=== PATIENT | female | born 1985 | race Hispanic/Latino ===

== ENCOUNTER 2017-06-20 15:14 | Emergency (ER) | payer OTHER ==
[2017-06-20] MEDS ORDERED: ONDANSETRON ODT 4 MG TAB ONE (15:54)
[2017-06-20] MEDS ORDERED: FAMOTIDINE 20MG TAB 20 MG TAB ONE (15:54)
== END 2017-06-20 16:54 | disposition home or self-care (01) ==
LOC: EDH 15:14
DX: K21.9 Gastro-esophageal reflux disease without esophagitis (principal); R11.2 Nausea with vomiting, unspecified

== ENCOUNTER → 2017-09-07 | Outpatient (CLI) | payer OTHER | END | disposition home or self-care (01) | LOC: RAH 14:32 | PROVIDERS: ATTEND Obstetrics & Gynecology | DX: N63.20 Unspecified lump in the left breast, unspecified quadrant (principal); R92.2 Inconclusive mammogram | CPT/HCPCS: 76641 ==

== ENCOUNTER 2018-02-02 05:40 | Observation (INO) | payer OTHER ==
[2018-02-01 13:10] VITALS: BP 96/68
[2018-02-01 13:32] LABS: BASOPHILS % (AUTO) 0.4 % (0.0-5.0); EOSINOPHILS % (AUTO) 1.7 % (0.0-8.0); HEMATOCRIT 40.9 % (36-48); LYMPHOCYTES % (AUTO) 20.2 % (21.0-51.0); MEAN CORPUSCULAR HGB CONC 32.2 g/dL (32.0-36.0); MEAN CORPUSCULAR VOLUME 83.8 fL (79-99); MONOCYTES % (AUTO) 6.4 % (3.0-13.0); NEUTROPHILS % (AUTO) 71.3 % (40.0-77.0); PLATELET COUNT (AUTO) 272 K/uL (130-400); RED BLOOD CELL COUNT(AUTO) 4.88 MIL/uL (4.00-5.50); RED CELL DISTRIBUTION WIDTH 13.8 % (11.0-15.5); WHITE BLOOD COUNT (AUTO) 9.9 K/uL (4.8-10.8)
[~2018-02-02] VITALS: Ht 156.2 cm; Wt 70.8 kg
[2018-02-02] VITALS (22 sets, daily range): BP systolic 114–153; BP diastolic 55–91
[~2018-02-02 05:40] MED LIST: BUSP10TA3 PO; CEFAZOLIN SODIUM 1 GM VIAL IVP SCH
[2018-02-02] MEDS ORDERED: LACTATED RINGERS 1000ML 1,000 ML IV ONE (06:05)
[2018-02-02] MEDS ORDERED: DEXAMETHASONE SOD PHOSPHATE 10MG/ML 1ML VIAL ONE (06:54)
[2018-02-02] MEDS ORDERED: MIDAZOLAM HCL 1 MG/ML 2ML VIAL ONE (06:55)
[2018-02-02] MEDS ORDERED: LIDOCAINE PF 2% 5ML ABBOJECT ONE (06:55)
[2018-02-02] MEDS ORDERED: SUCCINYLCHOLINE 200MG/10ML SYR ONE (06:55)
[2018-02-02] MEDS ORDERED: ONDANSETRON HCL 4 MG/2 ML VIAL ONE ×2 (06:55→09:15)
[2018-02-02] MEDS ORDERED: NEOSTIGMINE 5MG/5ML SYR IV ONE (06:56)
[2018-02-02] MEDS ORDERED: PROPOFOL 10 MG/ML 20ML VIAL IV ONE (06:56)
[2018-02-02] MEDS ORDERED: ROCURONIUM 10MG/1ML SYR 10 MG/ML ML ONE (06:56)
[2018-02-02] MEDS ORDERED: FENTANYL CITRATE PF 50 MCG/1 ML 2ML VIAL ONE (06:58)
[2018-02-02] MEDS ORDERED: MEPERIDINE-PF 50 MG/ML SYG ONE (08:41)
[2018-02-02] MEDS ORDERED: GLYCOPYRROLATE 1 MG/5 ML SYRINGE ONE (08:48)
[2018-02-02] MEDS ORDERED: MEPERIDINE-PF 25 MG/ML SYG ONE ×2 (09:25→09:51)
[2018-02-02] MEDS ORDERED: DOCUSATE SODIUM 100 MG CAP PO PRN (10:15)
[2018-02-02] MEDS ORDERED: IBUPROFEN 600 MG TABLET PO PRN (10:15)
[2018-02-02] MEDS ORDERED: PROMETHAZINE HCL 25 MG/ML 1ML AMPULE IM PRN (10:15)
[2018-02-02] MEDS ORDERED: BISACODYL 10 MG SUPP.RECT RC PRN (10:15)
[2018-02-02] MEDS: PROMETHAZINE HCL 25 MG/ML 1ML AMPULE IM PRN ×3 (10:43→19:58)
[2018-02-02] MEDS: MEPERIDINE-PF 75 MG/ML SYG IM PRN ×3 (10:44→19:59)
[2018-02-02] MEDS: DEXTROSE 5 %-0.45 % NACL 1,000 ML IV PRN (18:10)
[2018-02-02] MEDS: ACETAMINOPHEN-CODEINE 300/30MG TAB PO PRN ×2 (18:10→23:31)
[2018-02-03] MEDS: DEXTROSE 5 %-0.45 % NACL 1,000 ML IV PRN (03:34)
[2018-02-03 03:48] VITALS: BP 114/61
[2018-02-03] MEDS: MEPERIDINE-PF 75 MG/ML SYG IM PRN (04:00)
[2018-02-03] MEDS ORDERED: HYDROCODONE/ACETAMINOPHEN 5/325 MG TAB PO PRN (04:45)
[2018-02-03 05:13] LABS: HEMATOCRIT 36.3 % (36-48); MEAN CORPUSCULAR HEMOGLOBIN 26.8 pg (27.0-33.0); MEAN CORPUSCULAR HGB CONC 32.4 g/dL (32.0-36.0); MEAN CORPUSCULAR VOLUME 82.7 fL (79-99); PLATELET COUNT (AUTO) 265 K/uL (130-400); RED BLOOD CELL COUNT(AUTO) 4.39 MIL/uL (4.00-5.50); RED CELL DISTRIBUTION WIDTH 13.7 % (11.0-15.5); WHITE BLOOD COUNT (AUTO) 21.2 K/uL (4.8-10.8)
[2018-02-03 07:43] VITALS: BP 128/63
[2018-02-03] MEDS: ACETAMINOPHEN-CODEINE 300/30MG TAB PO PRN (08:58)
[2018-02-03] MEDS: SIMETHICONE 80 MG TAB.CHEW PO PRN ×2 (08:58→15:12)
[2018-02-03] MEDS ORDERED: IBUPROFEN 600 MG TABLET PO PRN (10:15)
[2018-02-03 12:01] VITALS: BP 119/63
[2018-02-03] MEDS ORDERED: IBUPROFEN 800 MG TAB PO PRN (15:00)
[2018-02-03] MEDS ORDERED: IBUPROFEN 800 MG TAB ONE (15:10)
== END 2018-02-03 18:00 | disposition home or self-care (01) ==
LOC: DAH 05:40 → SUH 05:40 → WSH 05:41 → SUH 23:57
PROVIDERS: ADMIT Obstetrics & Gynecology; ATTEND Obstetrics & Gynecology
DX: N92.1 Excessive and frequent menstruation with irregular cycle (principal); D25.9 Leiomyoma of uterus, unspecified; N81.6 Rectocele; N81.2 Incomplete uterovaginal prolapse; Z96.632 Presence of left artificial wrist joint; Z80.3 Family history of malignant neoplasm of breast
CPT/HCPCS: 36415 ×2; 58263; 84702; 85025; 85027; 86850; 86900; 86901; 88305; 88307; 96372 ×2; A4311; A4351; A4510; A4600; A4606; A4930; G0378 ×36; J0330; J0690; J1100; J2001; J2175 ×7; J2250; J2405 ×2; J2550 ×4; J2704; J2710; J3010; J3490; J7120 ×2

== ENCOUNTER → 2019-01-27 | Outpatient (CLI) | payer OTHER ==
[~2019-01-27] MED LIST changes: -CEFAZOLIN SODIUM 1 GM VIAL IVP SCH
== END | disposition home or self-care (01) ==
LOC: RAH 10:55
PROVIDERS: ATTEND Obstetrics & Gynecology
DX: N63.10 Unspecified lump in the right breast, unspecified quadrant (principal)
CPT/HCPCS: 76641

== ENCOUNTER → 2019-02-16 | Outpatient (CLI) | payer OTHER ==
[2019-02-16 10:50] LABS: INR 0.99 (0.85-1.15); PROTHROMBIN TIME 10.4 SEC (9.6-11.6)
--- NOTE | 2019-02-16 11:15 | NUR ---
U/S GUIDED BIOPSY RIGHT BREAST PROCEDURE PERFORMED BY DR. RODRIGUEZ. PUNCTURE SITE RIGHT MEDIAL BREAST. PATIENT TOLERATED PROCEDURE WELL. SPECIMEN X 3 COLLECTED. END OF PROCEDURE AT 1135. BIOPSY NEEDLE REMOVED AND DRESSING APPLIED. NO BLEEDING NOTED. DISCHARGE INSTRUCTIONS GIVEN TO PATIENT AND VERBALIZED UNDERSTANDING. DISCHARGED AT 1210 AMBULATORY. PT STABLE, AAO X 3, WITH NO C/O PAIN. SPECIMEN SENT TO LAB
== END ==
LOC: RAH 09:34
PROVIDERS: ATTEND Obstetrics & Gynecology
DX: C50.911 Malignant neoplasm of unspecified site of right female breast (principal); Z79.899 Other long term (current) drug therapy
CPT/HCPCS: 19083; 36415; 77065; 85610; 85730; 88305; A4215

== ENCOUNTER 2023-08-11 08:07 | Day surgery (SDC) | payer OTHER ==
[2023-08-06 15:43] LABS: BASOPHILS # (AUTO) 0.03 K/uL (0.00-0.20); BASOPHILS % (AUTO) 0.3 % (0.0-5.0); EOSINOPHILS # (AUTO) 0.24 K/uL (0.00-0.70); EOSINOPHILS % (AUTO) 2.3 % (0.0-8.0); HEMATOCRIT 41.9 % (36-48); IMMATURE GRANULOCYTE ABSOLUTE 0.06 K/uL (0-1); LYMPHOCYTES # (AUTO) 2.3 K/uL (1.0-4.8); LYMPHOCYTES % (AUTO) 21.4 % (21.0-51.0); MEAN CORPUSCULAR HEMOGLOBIN 28.7 pg (27.0-33.0); MEAN CORPUSCULAR HGB CONC 33.2 g/dL (32.0-36.0); MEAN CORPUSCULAR VOLUME 86.4 fL (79-99); MONOCYTES # (AUTO) 0.7 K/uL (0.1-1.0); MONOCYTES % (AUTO) 6.8 % (3.0-13.0); NEUTROPHILS # (AUTO) 7.2 K/uL (1.8-7.7); NEUTROPHILS % (AUTO) 68.6 % (40.0-77.0); PLATELET COUNT (AUTO) 313 K/uL (130-400); RED BLOOD CELL COUNT(AUTO) 4.85 MIL/uL (4.00-5.50); RED CELL DISTRIBUTION WIDTH 12.7 % (11.0-15.5); WHITE BLOOD COUNT (AUTO) 10.5 K/uL (4.8-10.8)
[2023-08-06 15:53] LABS: INR <= 0.93 (0.85-1.15); PROTHROMBIN TIME 10.6 SEC (9.6-11.6)
[2023-08-06 15:54] LABS: PARTIAL THROMBOPLASTIN TIME 29.9 SEC (26.3-35.5)
[2023-08-06 15:56] VITALS: BP 119/66; PULSE 90; RESP 19
[2023-08-06 16:00] LABS: CREATININE 0.7 mg/dL (0.5-1.0); POTASSIUM 3.7 mmol/L (3.5-5.1)
[2023-08-11] VITALS (16 sets, daily range): BP systolic 100–135; BP diastolic 49–78; PULSE 65–85; RESP 12–20
[~2023-08-11] VITALS: Ht 160 cm; Wt 74.8 kg
[~2023-08-11 08:07] MED LIST changes: -BUSP10TA3 PO; +DIPH-1242 PO
[2023-08-11] MEDS ORDERED: BUPIVACAINE/PF 0.5% 30ML VIAL ONE (08:42)
[2023-08-11] MEDS: LACTATED RINGERS 1000ML 1,000 ML IV ONE (08:52)
[2023-08-11] MEDS ORDERED: LIDOCAINE PF 100MG/5ML (2%) SYRINGE 5ML ONE (08:52)
[2023-08-11] MEDS ORDERED: FENTANYL CITRATE PF 50 MCG/1 ML 2ML VIAL ONE ×2 (08:53→10:01)
[2023-08-11] MEDS ORDERED: MIDAZOLAM HCL 1 MG/ML 2ML VIAL ONE (08:53)
[2023-08-11] MEDS ORDERED: DEXAMETHASONE SOD PHOSPHATE 10MG/ML 1ML VIAL ONE (08:53)
[2023-08-11] MEDS ORDERED: PROPOFOL 10 MG/ML 20ML VIAL IV ONE (08:53)
[2023-08-11] MEDS: CEFAZOLIN SODIUM 2 GM VIAL ONE (08:53)
[2023-08-11] MEDS ORDERED: ONDANSETRON 4MG INJ ONE (08:53)
[2023-08-11] MEDS: BUPIVACAINE/PF 0.5% 30ML VIAL INJ ONE (09:37)
[2023-08-11] MEDS ORDERED: KETOROLAC 30MG VIAL (30MG/ML) ONE (10:01)
[2023-08-11] MEDS ORDERED: GABA-529 PO (10:06)
[2023-08-11] MEDS ORDERED: TRAM50TA4 PO (10:06)
[2023-08-11] MEDS ORDERED: DOCU-116 PO (10:06)
== END 2023-08-11 12:00 | disposition home or self-care (01) ==
LOC: DAH 08:07
PROVIDERS: ATTEND Surgery
DX: C50.511 Malignant neoplasm of lower-outer quadrant of right female breast (principal); F41.9 Anxiety disorder, unspecified; M19.90 Unspecified osteoarthritis, unspecified site; F17.200 Nicotine dependence, unspecified, uncomplicated; F51.01 Primary insomnia; Z79.01 Long term (current) use of anticoagulants; Z79.899 Other long term (current) drug therapy; Z85.3 Personal history of malignant neoplasm of breast; Z90.710 Acquired absence of both cervix and uterus; Z98.890 Other specified postprocedural states; Z90.13 Acquired absence of bilateral breasts and nipples; Z80.3 Family history of malignant neoplasm of breast
CPT/HCPCS: 80048; 85025; 85610; 85730; 36415; 19301; 88305; 88307; A6260; A4663; J7120; J3010 ×2; J1100; J2001; J2250; J2704; J2405; J1885; J0665 ×2; J0690 ×2; A4930; A4215; A4223; A4222; A4221; A4600; J3490

== ENCOUNTER 2024-04-04 20:20 | Emergency (ER) | payer OTHER ==
[~2024-04-04] VITALS: Ht 157.5 cm; Wt 73.0 kg
[~2024-04-04 20:20] MED LIST changes: +DOCU-116 PO; +GABA-529 PO; +TRAM50TA4 PO
[2024-04-04] MEDS: ondanSETRON 4MG INJ IVP STA (20:27)
[2024-04-04] MEDS: 0.9%NACL 1000ML 1,000 ML IV STA (20:27)
[2024-04-04] MEDS: ketOROlac 15MG/ML VIAL (15MG/ML) IV STA (20:27)
[2024-04-04 20:39] LABS: APPEARANCE,URINE CLEAR (CLEAR); BILIRUBIN,URINE NEGATIVE (NEGATIVE); COLOR,URINE LIGHT-YELLOW (YELLOW); GLUCOSE, URINE (UA) NEGATIVE (NEGATIVE); KETONES,URINE NEGATIVE (NEGATIVE); LEUKOCYTE ESTERASE ,URINE NEGATIVE Leu/uL (NEGATIVE); NITRATE,URINE NEGATIVE (NEGATIVE); OCCULT BLOOD,URINE SMALL (NEGATIVE); PROTEIN,URINE NEGATIVE (NEGATIVE); UROBILINOGEN,URINE 0.2 mg/dL (0.2-1.0)
[2024-04-04 20:40] LABS: ADD UA MICROSCOPIC YES
[2024-04-04 20:42] LABS: BACTERIA,URINE RARE /HPF (None Seen); MUCUS,URINE RARE LPF (None Seen); SQUAMOUS EPITHELIAL CELL,UR FEW /HPF (0-2)
[2024-04-04 21:06] LABS: BASOPHILS # (AUTO) 0.03 K/uL (0.00-0.20); BASOPHILS % (AUTO) 0.3 % (0.0-5.0); EOSINOPHILS % (AUTO) 1.9 % (0.0-8.0); IMMATURE GRANULOCYTE ABSOLUTE 0.04 K/uL (0-1); LYMPHOCYTES # (AUTO) 2.6 K/uL (1.0-4.8); LYMPHOCYTES % (AUTO) 25.2 % (21.0-51.0); MEAN CORPUSCULAR HEMOGLOBIN 29.5 pg (27.0-33.0); MEAN CORPUSCULAR HGB CONC 32.6 g/dL (32.0-36.0); MEAN CORPUSCULAR VOLUME 90.5 fL (79-99); MONOCYTES # (AUTO) 0.9 K/uL (0.1-1.0); MONOCYTES % (AUTO) 8.6 % (3.0-13.0); NEUTROPHILS # (AUTO) 6.6 K/uL (1.8-7.7); NEUTROPHILS % (AUTO) 63.6 % (40.0-77.0); PLATELET COUNT (AUTO) 268 K/uL (130-400); RED BLOOD CELL COUNT(AUTO) 4.64 MIL/uL (4.00-5.50); RED CELL DISTRIBUTION WIDTH 12.4 % (11.0-15.5); WHITE BLOOD COUNT (AUTO) 10.3 K/uL (4.8-10.8)
[2024-04-04 21:15] LABS: CREATININE 0.7 mg/dL (0.5-1.0); POTASSIUM 3.8 mmol/L (3.5-5.1)
--- NOTE | 2024-04-04 21:30 | HMCIMG ---
CT ABDOMEN/PELVIS W/O CONTRAST HISTORY: Right flank pain COMPARISON: 08/29/2016 TECHNIQUE: Multiple sequential axial images of the abdomen and pelvis were obtained from the dome of the diaphragm through symphysis pubis. Patient was not given contrast through intravenous route. Oral contrast was not given. FINDINGS: No pleural effusion is seen bilaterally. There are bilateral breast implants. There is no evidence of parenchymal disease or pulmonary nodule of the visualized lower lungs. Degenerative changes of the thoracolumbar spine are present. The heart is not enlarged. Liver measures 17 cm. Gallbladder is contracted. The liver, spleen, adrenal glands and pancreas are unremarkable. There is no evidence of hydronephrosis bilaterally. No evidence of renal stone is seen. Fecal material is seen in the colon. There are normal size retroperitoneal and mesenteric lymph nodes. No ascites is seen. No CT evidence of acute appendicitis is seen. Uterus has been removed. Pelvic sidewalls are symmetric bilaterally. Bladder is poorly distended. There is right ovarian cystic structure measuring 2.8 cm may be related to ovarian cyst. IMPRESSION: 1. Right ovarian cystic structure measuring 2.8 cm. No hydronephrosis is seen. CT was performed with one or more following dose reduction techniques: automated exposure control, adjustment of the mA and kv according to patient's size, or use of a iterative reconstruction technique.
[2024-04-04] MEDS: acetaMINOPHEN 325 MG TAB PO ONE (23:15)
--- NOTE | 2024-04-04 23:18 | ERN ---
ED Note History of Present Illness Stated Complaint: ABDOMINAL PAIN Chief Complaint: Abdominal Pain Time Seen by MD: 20:23 Time Seen by Midlevel: 20:26 Dictation: 38-year-old female complaining of right lower quadrant pain that radiates to the right flank area. Patient states the pain started 30 minutes ago and states she has some dysuria but no hematuria. Previous history breast cancer, now taking tamoxifen prophylactically. Surgical history hysterectomy and double mastectomy. Denies any fever, nausea, vomiting or diarrhea. Allergies: Coded Allergies: No Known Drug Allergies (Unverified Allergy, Unknown, 02/01/18) Home Meds Active Scripts Gabapentin (Gabapentin) 100 Mg Capsule, 100 MG PO TID, #15 CAP 0 Refills Prov:ALESSANDRO HERRON MD 08/11/23 Docusate Sodium (Colace) 100 Mg Capsule, 100 MG PO BID, #30 CAP 0 Refills Prov:ALESSANDRO HERRON MD 08/11/23 Tramadol Hcl (Tramadol HCl) 50 Mg Tablet, 50 MG PO Q6HPRN PRN for PAIN, #28 TAB 0 Refills Prov:ALESSANDRO HERRON MD 08/11/23 Reported Medications Diphenhydramine HCl (Benadryl) 25 Mg Cap, 25 MG PO AD PRN for allergies, CAP 08/06/23 Past Medical History Past Medical History: Other Additional Past Medical Hx: BREAST CANCER Surgical History: Hysterectomy, Other Surgical History Other: BILATERAL MASTECTOMY Review of System Dictation Constitutional: Negative for fever,chills, and weight loss Eyes: Negative for injury, pain,redness, and discharge ENT: Negative for injury,pain or swelling Cardiovascular: Negative for chest pain, palpitations, and edema Respiratory: Negative for shortness of breath, cough, and wheezing, Abdomen/GI: Right lower quadrant pain, no nausea, no vomiting, no diarrhea, and no constipation Back: Negative for injury and pain : Negative for injury, bleeding and discharge MS/Extremity: Negative for injury and deformity Skin: Negative for rash, and discoloration Neuro: Negative for headache, weakness, numbness, tingling, and seizure Psych: Negative for suicide ideation, homicidal ideation, and hallucinations Review of Systems: was completed Initial Vital Sign VS Vital Signs Date Time Temp Pulse Resp B/P (MAP) Pulse Ox O2 Delivery O2 Flow Rate FiO2 04/04/24 20:23 98.8 83 18 147/82 99 Room Air 0 Physical Exam Dictation General: awake, alert, NAD Head/Face: Normocephalic, atraumatic Eyes: PERRL, EOMI, vision at baseline ENT: oral cavity clear, TMs clear, no signs of infection Neck: Trachea midline, supple, no nuchal rigidity Cardiovascular: RRR, normal S1/S2, No MRGs, no JVD Respiratory: CTAB, no respiratory distress, No rales or wheezes Abdomen: Soft, nondistended, mild tenderness to the right lower quadrant, normal bowel sounds, no guarding or rebound. Skin: Warm, dry, normal turgor, no rash MS/Extremity: Pulses equal, no cyanosis, neurovascular intact, FROM Neuro: COAx4, GCS 15, strength 5/5, CN 2-12 intact, normal cerebellar exam, no rmal gait, Psych: Normal behavior, mood, and affect normal Results (Laboratory/Radiology) Laboratory/Radiology Laboratory Tests Test 04/04/24 20:31 04/04/24 20:59 Urine Color LIGHT-YELLOW (YELLOW) Urine Appearance CLEAR (CLEAR) Urine pH 6.0 (5.0-8.0) Urine Specific [place] 1.026 (1.001-1.031) Urine Protein NEGATIVE mg/dL (NEGATIVE) Urine Glucose (UA) NEGATIVE mg/dL (NEGATIVE) Urine Ketones NEGATIVE mg/dL (NEGATIVE) Urine Occult Blood SMALL (NEGATIVE) H Urine Nitrate NEGATIVE (NEGATIVE) Urine Bilirubin NEGATIVE mg/dL (NEGATIVE) Urine Urobilinogen 0.2 mg/dL (0.2-1.0) Urine Leukocyte Esterase NEGATIVE Ivonne/uL Urine RBC 6-10 /HPF (0-1) H Urine WBC 2-5 /HPF (0-1) H Urine Squamous Epithelial Cells FEW /HPF (0-2) Urine Bacteria RARE /HPF (None Seen) White Blood Count 10.3 K/uL (4.8-10.8) Red Blood Count 4.64 MIL/uL (4.00-5.50) Hemoglobin 13.7 g/dL (12.0-16.0) Hematocrit 42.0 % (36-48) Mean Corpuscular Volume 90.5 fL (79-99) Mean Corpuscular Hemoglobin 29.5 pg (27.0-33.0) Mean Corpuscular Hemoglobin Concent 32.6 g/dL (32.0-36.0) Red Cell Distribution Width 12.4 % (11.0-15.5) Platelet Count 268 K/uL (130-400) Mean Platelet Volume 10.1 fL (7.5-10.5) Immature Granulocyte % (Auto) 0.4 % (0-1) Neutrophils (%) (Auto) 63.6 % (40.0-77.0) Lymphocytes (%) (Auto) 25.2 % (21.0-51.0) Monocytes (%) (Auto) 8.6 % (3.0-13.0) Eosinophils (%) (Auto) 1.9 % (0.0-8.0) Basophils (%) (Auto) 0.3 % (0.0-5.0) Neutrophils # (Auto) 6.6 K/uL (1.8-7.7) Lymphocytes # (Auto) 2.6 K/uL (1.0-4.8) Monocytes # (Auto) 0.9 K/uL (0.1-1.0) Eosinophils # (Auto) 0.20 K/uL (0.00-0.70) Basophils # (Auto) 0.03 K/uL (0.00-0.20) Absolute Immature Granulocyte (auto 0.04 K/uL (0-1) Nucleated Red Blood Cells 0.0 % (0.0-0.19) Sodium Level 142 mmol/L (136-145) Potassium Level 3.8 mmol/L (3.5-5.1) Chloride Level 106 mmol/L (101-111) Carbon Dioxide Level 30 mmol/L (21-32) Blood Urea Nitrogen 13 mg/dL (7-18) Creatinine 0.7 mg/dL (0.5-1.0) Glomerular Filtration Rate Calc 113 mL/min (>90) Random Glucose 111 mg/dL (70-105) H Total Calcium 8.6 mg/dL (8.5-10.1) Labs Reviewed?: Yes ED Course ED Course Orders Procedure Category Date Status Time Cbc With Differential LAB 04/04/24 Complete 20:27 Basic Metabolic Panel LAB 04/04/24 Complete 20:27 Urinalysis Profile LAB 04/04/24 Complete 20:27 Ct Abdomen/Pelvis W/O CT 04/04/24 Resulted Contrast 20:27 0.9%Nacl 1000ml (Ns PHA 04/04/24 Complete 1000ml) 20:27 Ondansetron 4mg Inj PHA 04/04/24 Complete (Zofran 4mg Inj) 20:27 Ketorolac PHA 04/04/24 Complete Tromethamine 15mg/Ml 20:27 Us Pelvic Non-Ob Comp US 04/04/24 Taken 22:01 Acetaminophen 325 Tab PHA 04/04/24 Complete (Tylenol 325mg Tab 23:00 Current Medications Medications (Trade) Dose Ordered Sig/Schuyler Route PRN Reason Start Time Stop Time Status Last Admin Dose Admin Acetaminophen (TYLenol 325MG TAB) 650 mg ONCE ONCE PO 04/04/24 23:00 04/04/24 23:01 DC Ketorolac Tromethamine (toRADol) 15 mg ONCE STAT IV 04/04/24 20:27 04/04/24 20:30 DC Ondansetron HCl (zoFRAN 4MG INJ) 4 mg ONCE STAT IVP 04/04/24 20:27 04/04/24 20:30 DC Sodium Chloride 1,000 ml @ 1,000 mls/hr Q1H STAT IV 04/04/24 20:27 04/04/24 21:26 DC Vital Signs Date Time Temp Pulse Resp B/P (MAP) Pulse Ox O2 Delivery O2 Flow Rate FiO2 04/04/24 20:23 98.8 83 18 147/82 99 Room Air 0 Medical Decision Making MDM MDM: 38-year-old female complaining of right lower quadrant pain that radiates to the right flank area. Patient states the pain started 30 minutes ago and states she has some dysuria but no hematuria. Previous history breast cancer, now taking tamoxifen prophylactically. Surgical history hysterectomy and double mastectomy. Denies any fever, nausea, vomiting or diarrhea.CBC shows no leukocytosis, no anemia, no thrombocytopenia. Chemistry unremarkable. UA shows no evidence of urinary tract infection. CT scan shows right ovary and cyst measuring 2.8 cm, no hydronephrosis is seen. Ultrasound shows positive flow to bilateral ovaries. Discussed findings with patient. Educated patient she may have pain due to the very assist in his to see an OBGYN for follow up. Patient verbalized understanding, answered all questions. Differential diagnosis: Appendicitis, ovarian torsion, urinary tract infection, kidney stone, pyelonephritis Rationale: Tests considered and ordered secondary to shared decision making include: Previous outside records reviewed: Old ER visits. Risk of complication and/or morbidity or mortality of patient management: None Medications-Per medication reconciliation Need for hospitalization: Patient does not meet criteria for hospitalization. Need for emergency major/minor surgery: No There are no social concerns with this patient. Prescription drug management Prescriptions will include symptomatic care Patient's prior external medical records from other ER visits were reviewed by me as indicated. Prior testing and results from previous visits were reviewed. Prior tests were taken into account with medical decision making and resource utilization, independent historian/historians were used to obtain complete medical history. I independently interpreted the test that were performed, results were reviewed by me and considered findings on radiology if ordered. Medical management and examination interpretation discussions were had by me with other qualified healthcare professionals as indicated for the patient's care. DX & DISP Disposition: Discharge Departure Impression: Primary Impression: Right ovarian cyst Condition: Stable Additional Instructions: You can take Tylenol or Motrin [id number] for pain management. Follow up with OBGYN outpatient. Referrals: LEILA MALCOLM [facility] (PCP) Time of Disposition: 23:17 I have reviewed the case, and I agree with, Diagnosis and Plan NATHAN HENDRICKSON NP Apr 04, 2024 23:18
[2024-04-04] MEDS: ketOROlac 15MG/ML VIAL (15MG/ML) IM ONE (23:27)
[2024-04-04 23:36] VITALS: BP 132/74; PULSE 78; RESP 18; TEMP 98.4; O2SAT 98
--- NOTE | 2024-04-05 01:09 | HMCIMG ---
US PELVIC NON-OB COMP HISTORY: Pelvic pain COMPARISON: None TECHNIQUE: Transabdominal pelvic ultrasound study was performed. FINDINGS: Uterus has been removed. The right ovary measures 3 x 2.8 x 2.4 cm. The left ovary measures 2.4 x 2 x 1.2 cm. Flow is seen in both ovaries. There is right ovarian cyst measuring 2.6 x 2.5 x 2.2 cm. No free fluid is seen in the cul-de-sac. IMPRESSION: 1. No adnexal mass is seen. Post hysterectomy. Right ovarian cyst measuring 2.6 cm
== END 2024-04-04 23:41 | disposition home or self-care (01) ==
LOC: EDH 20:20
DX: N83.201 Unspecified ovarian cyst, right side (principal); Z79.899 Other long term (current) drug therapy; Z90.710 Acquired absence of both cervix and uterus
CPT/HCPCS: 99285; 74176; 76856; 80048; 85025; 81001; 36415; 96372; J1885